=== PATIENT | female | born 1990 | race American Indian/Alaskan Native ===

== ENCOUNTER 2017-10-01 01:42 | Emergency (ER) | payer BC ==
[2017-10-01 02:12] VITALS: BP 131/79; PULSE 76; RESP 17; TEMP 98.5; O2SAT 100
--- NOTE | 2017-10-01 02:59 | C.PDOC ---
History Of Present Illness Patient is a 27 y/o female presents to the ED with complaints od a dry couhg, congestion, itchy eyes, and itchy throat. Patient notes she has seasonal allergies. Denies any CP, fever, or chest tightness. No other physical complaints at this time. Time Seen by Provider: 10/01/17 02:14 Chief Complaint (Nursing): Flu-like Symptoms History Per: Patient History/Exam Limitations: no limitations Current Symptoms Are (Timing): Still Present Associated Symptoms: Cough (dry), Nasal Congestion. denies: Fever Recent travel outside of the [place]: No Past Medical History Reviewed: Historical Data, Nursing Documentation, Vital Signs Vital Signs: Last Vital Signs Temp 98.5 F 10/01/17 02:00 Pulse 76 10/01/17 02:00 Resp 17 10/01/17 02:00 BP 131/79 10/01/17 02:00 Pulse Ox 100 10/01/17 04:56 - Medical History PMH: No Chronic Diseases Surgical History: No Surg Hx Family History: States: Unknown Family Hx - Social History Hx Alcohol Use: Yes Hx Substance Use: No - Immunization History Hx Tetanus Toxoid Vaccination: Yes Hx Influenza Vaccination: Yes Hx Pneumococcal Vaccination: No Review Of Systems Constitutional: Negative for: Fever Eyes: Positive for: Other (itchy eyes) ENT: Positive for: Nose Congestion, Other (itchy throat) Cardiovascular: Negative for: Chest Pain Respiratory: Positive for: Cough. Negative for: Shortness of Breath Physical Exam - Physical Exam Appears: Well, Non-toxic, No Acute Distress Eye(s): bilateral: Normal Inspection, PERRL, EOMI, Other (no eye redness, no swelling) Ear(s): Bilateral: Normal Nose: Discharge, Other (enlarged nasal turbinates) Oral Mucosa: Moist Throat: Normal, No Erythema, Other (negative englarged tonsils) Lymphatic: No Adenopathy Cardiovascular: Rhythm Regular Respiratory: Normal Breath Sounds, No Wheezing Neurological/Psych: Oriented x3 ED Course And Treatment O2 Sat by Pulse Oximetry: 100 Progress Note: Patientstable in NAD, vss. Will d/c Disposition Counseled Patient/Family Regarding: Diagnosis, Need For Followup, Rx Given - Disposition Referrals: [facility] [Outside] Disposition: HOME/ ROUTINE Disposition Time: 02:59 Condition: STABLE Additional Instructions: Increase PO fluids Take meds as directed Return to ER if sx worsen Prescriptions: Cetirizine HCl [Zyrtec] 10 mg PO DAILY #20 capsule Fluticasone Nasal [Flonase] 1 actuation NS BID #1 spr Olopatadine 0.1% Opht [Patanol 5 Ml] 1 drop OP BID #1 bottle Instructions: Allergic Rhinitis (ED) Forms: [facility] (Irish), Work Excuse - Clinical Impression Clinical Impression: Allergic rhinitis - Scribe Statement The provider has reviewed the documentation as recorded by the Scribe Linda Acuna All medical record entries made by the Scribe were at my direction and personally dictated by me. I have reviewed the chart and agree that the record accurately reflects my personal performance of the history, physical exam, medical decision making, and the department course for this patient. I have also personally directed, reviewed, and agree with the discharge instructions and disposition.
== END 2017-10-01 03:27 | disposition home or self-care (01) ==
LOC: C.ER 01:42
DX: J30.9 Allergic rhinitis, unspecified (principal)